=== PATIENT | male | born 1975 | race Caucasian/White ===

== ENCOUNTER 2024-05-30 15:57 | Outpatient (CLI) | payer OTHER, SELFPAY ==
--- NOTE | ~2024-05-30 | XR_ITS ---
XR wrist RT min 3V 05/30/2024 16:34 Indication: Carpal tunnel syndrome Procedure: 4 views right wrist Comparison: No prior studies for comparison. Findings: No fracture, subluxation or dislocation. There is mild polyarticular osteoarthritis of the triscaphe, first carpal metacarpal joint, the metacarpal phalangeal and interphalangeal joints. No si gnificant soft tissue abnormality. Impression: 1: Mild polyarticular osteoarthritis. Reviewed, dictated and finalized at location A. Impression: 1: Mild polyarticular osteoarthritis.
--- NOTE | ~2024-05-30 | XR_ITS ---
XR wrist LT min 3V 05/30/2024 16:34 Indication: Left wrist pain Procedure: 4 views left wrist Comparison: No prior studies for comparison. Findings: No fracture, subluxation or dislocation. No significant soft tissue abnormality. No foreign bodies. No erosive changes. Impression: 1: No significant bone or joint abnormality. Reviewed, dictated and finalized at location A. Impression: 1: No significant bone or joint abnormality.
== END 2024-05-30 15:58 | disposition home or self-care (01) ==
DX: G56.01 Carpal tunnel syndrome, right upper limb (principal); G56.02 Carpal tunnel syndrome, left upper limb; M65.4 Radial styloid tenosynovitis [de Quervain]; M16.0 Bilateral primary osteoarthritis of hip; M17.0 Bilateral primary osteoarthritis of knee; M19.031 Primary osteoarthritis, right wrist
CPT/HCPCS: 73110

== ENCOUNTER 2024-06-09 13:27 | Outpatient (CLI) | payer SELFPAY ==
--- NOTE | ~2024-06-09 | MR_ITS ---
EXAMINATION: MR_[id number]_MR, MR_[id number]_MR DATE: 06/09/2024 15:16 INDICATION: Primary osteoarthritis of the left hip in the presumably with left hip pain TECHNIQUE: 1. Magnetic resonance imaging (MRI) of the left hip was performed without intravenous contrast. Seque nces included full-field axial PD-weighted FS FSE and T1-weighted FSE, coronal of the pelvis with PD- weighted FS FSE, small field of view of the left hip with axial PD-weighted FS FSE, sagittal PD-weig hted FS FSE and coronal PD weighted FS FSE. Additional radial T1-weighted FGR oriented orthogonal to the acetabular rim were obtained for evaluation of the labrum. 2. MRI of the left knee was performed without intravenous contrast. Sequences included coronal PD-we ighted FSE, coronal PD-weighted FS FSE, sagittal T2-weighted FSE, sagittal PD-weighted FS FSE and axi al PD weighted fat saturated FSE. 3. MRI of the right hip was performed without intravenous contrast. Sequences included full-field axi al PD-weighted FS FSE and T1-weighted FSE, coronal of the pelvis with PD-weighted FS FSE, small field of view of the right hip with axial PD-weighted FS FSE, sagittal PD-weighted FS FSE and coronal PD weighted FS FSE. Additional radial T1-weighted FGR oriented orthogonal to the acetabular rim were obt ained for evaluation of the labrum. 4. MRI of the right knee was performed without intravenous contrast. Sequences included coronal PD-w eighted FSE, coronal PD-weighted FS FSE, sagittal T2-weighted FSE, sagittal PD-weighted FS FSE and ax ial PD weighted fat saturated FSE. COMPARISON: None. FINDINGS: PELVIS AND BILATERAL HIPS: Bones/labrum/cartilage: Alignment is normal. There is red marrow reexpansion in the pelvis, lumbar spine and proximal femurs. Marrow signal is otherwise normal with no fracture, avascular necrosis or pathologic marrow replacin g process. Left acetabular labrum is normal. Relatively symmetric mild osteoarthritis at both hips wi th mild partial-thickness cartilage loss with smooth chondral surface most prominent at the anterosup erior, posterior and central aspects of both joint spaces. Mild lower lumbar spondylosis with severe facet osteoarthritis bilaterally at L4-L5 and moderate bilaterally at L5-S1. Fluid: Symmetric physiologic amount of fluid within both hip joints. There is asymmetric mild increased flui d signal overlying the left greater trochanter consistent with mild left trochanteric bursitis. Soft tissues: Normal and symmetric muscle bulk and signal in the pelvis and visualized proximal thighs. The iliopso as, gluteal and proximal hamstring tendons are normal. Limited evaluation of visceral organs of the p reinier is unremarkable. No pathologically enlarged pelvic/inguinal lymphadenopathy. LEFT KNEE: Medial compartment: Medial meniscus is normal. Articular cartilage is normal. Lateral compartment: Lateral meniscus is normal. Articular cartilage is normal. Patellofemoral compartment: Deep chondral ulceration at the central aspect of the trochlear groove and adjacent medial side of th e medial trochlea. Patellar cartilage is normal. Ligaments and tendons: Anterior and posterior cruciate ligaments are normal. The medial collateral ligament and fibular janet ateral ligament complex are normal. The extensor mechanism is normal. Mild distal quadriceps and prox imal patellar tendinopathy without tear. There are some enthesopathic ossification at the proximal pa tellar tendon. The visualized medial and lateral hamstring tendons as well as the iliotibial band are normal. Fluid: Physiologic amount of fluid in the joint space. No loose osteochondral bodies identified. Osseous/other: There is prominent red marrow reexpansion in the metaphyseal regions of the visualized distal femur a nd proximal tibia and fibula. No fracture or pathologic marrow replacing process. RIGHT KNEE: Medial compartment: Medial meniscus is normal. Articular cartilage is normal. Lateral compartment: Lateral meniscus is normal. Small region of deep chondral fissuring with minimal underlying subarticu lar edema-like signal change at the central aspect of the lateral tibial plateau. Patellofemoral compartment: Shallow chondral fissuring at the cephalad aspect of the lateral patellar facet. Trochlear cartilage is normal. Ligaments and tendons: Anterior and posterior cruciate ligaments are normal. The medial collateral ligament and fibular janet ateral ligament complex are normal. Mild distal quadriceps and proximal patellar tendinopathy. The vi sualized medial and lateral hamstring tendons as well as the iliotibial band are normal. Fluid: Physiologic amount of fluid in the joint space. No loose osteochondral bodies identified. Osseous/other: Red marrow reexpansion in the metaphyseal regions of the visualized distal femur and proximal tibia a nd fibula. No fracture or pathologic marrow replacing process IMPRESSION: 1. Mild bilateral hip osteoarthritis. 2. Mild left trochanteric bursitis. 3. Mild osteoarthritis at the bilateral patellofemoral compartments and the lateral compartment of th e right knee. 4. Mild enthesopathy without tears at the patellar insertions of the bilateral quadriceps and patella r tendons. Reviewed, dictated and finalized at location B. IMPRESSION: 1. Mild bilateral hip osteoarthritis. 2. Mild left trochanteric bursitis. 3. Mild osteoarthritis at the bilateral patellofemoral compartments and the lat eral compartment of the right knee. 4. Mild enthesopathy without tears at the patellar insertions of the bilateral quadriceps and patellar tendons.
== END 2024-06-09 13:28 | disposition home or self-care (01) ==
DX: M16.0 Bilateral primary osteoarthritis of hip (principal); M17.0 Bilateral primary osteoarthritis of knee; G56.03 Carpal tunnel syndrome, bilateral upper limbs; M70.62 Trochanteric bursitis, left hip
CPT/HCPCS: 73721